=== PATIENT | female | born 1960 | race African-American/Black ===

== ENCOUNTER → 2016-06-11 | Outpatient (REF) ==
[~2016-06-11] MED LIST: AMBISOME50 MG IV; ATARAX50 MG PO; BENADRYL50 MG PO; DAZIDOX10 MG PO; DESYREL 50MG50 MG PO; ELMIRON 10100 MG/CA1 PO; K-DUR20 MEQ PO; LEVAQUIN 5500 MG/TA1 PO; LEXAPRO 10MG10 MG PO; MAG-OX 400400 MG/TAB PO; MELATONIN3 M1; MIRALAX PA17 GM/Dose PO; MYCAMINE100 MG IV; OXYCONTIN 10MG10 MG PO; PHENERGAN 25 TA25 MG PO; PROTONIX20 MG PO; STOOL SOFTENER100 M2 PO; ULTRAM 50MG TAB50 MG PO; VFEND 50MG50 MG PO; XANAX 0.5MG0.5 MG PO; ZOFRAN ODT4 MG PO; ZOVIRAX800 MG PO
== END ==
LOC: ZAIV 06:00
DX: Z09 Encounter for follow-up examination after completed treatment for conditions other than malignant neoplasm (principal)

== ENCOUNTER 2016-07-01 13:30 | Outpatient (RCR) | payer MEDICARE, MEDICAID ==
[2016-06-15 11:22] VITALS: BP 102/94; PULSE 84
[2016-06-16 13:16] VITALS: BP 100/66; PULSE 79; TEMP 97.6
[2016-06-23 14:07] VITALS: BP 103/62; PULSE 95; TEMP 98.2
[2016-06-23 14:16] LABS: ADD PATHOLOGY DIFF REVIEW NO
[2016-06-23 14:26] LABS: MEAN CELL VOLUME 90 fl (80.0-100.0); MEAN CORPUSCULAR HGB CONC 33 g/dl (33.0-37.0); RED BLOOD COUNT 3.73 M/mm3 (4.10-5.30); REDCELL DISTRIBUTION WIDTH-CV 19.5 % (11.5-14.5)
[2016-06-23 14:30] LABS: ADJUSTED CALCIUM 9.7 mg/dL (8.4-10.2); ALBUMIN 3.9 gm/dL (3.5-5.0); BILIRUBIN,TOTAL 0.9 mg/dL (0.0-1.0); CALCIUM 9.6 mg/dL (8.4-10.2); CREATININE, serum 0.74 mg/dL (0.52-1.25); POTASSIUM 3.7 mmol/L (3.4-5.0); TOTAL PROTEIN 7.2 gm/dL (6.4-8.2)
[2016-06-23 14:31] LABS: HEMATOCRIT 33.5 % (37.0-47.0); HEMOGLOBIN 11.2 g/dl (12.5-16.0); MEAN CORPUSCULAR HEMOGLOBIN 30 pg (27.0-31.0); PLATELET COUNT 61 K/mm3 (130-400)
[2016-06-23 14:33] LABS: WHITE BLOOD COUNT 1.1 K/mm3 (4.8-10.8)
[2016-06-23 14:41] LABS: BAND 5 % (0-10); NEUTROPHILS 5 % (42.0-75.2)
[2016-06-23 14:42] LABS: ANISOCYTOSIS 1+; SCHISTOCYTES 1+; TARGET CELLS 2+; TEAR DROP CELLS 1+; TOTAL CELLS COUNTED 20
[2016-06-23 14:43] LABS: PLATELET ESTIMATE DECREASED (NORMAL)
== END 2016-07-02 10:12 | disposition still patient (30) ==
LOC: EUO 13:30
PROVIDERS: Internal Medicine Medical Oncology
DX: D72.818 Other decreased white blood cell count (principal)
CPT/HCPCS: C1751; J1644